=== PATIENT | male | born 1955 | race Caucasian/White ===

== ENCOUNTER 2020-05-25 23:35 | Emergency (ER) | payer MEDICARE, OTHER, SELFPAY ==
[2020-05-25 23:41] VITALS: BP 162/95; RESP 15; TEMP 36.4; O2SAT 97
--- NOTE | 2020-05-26 00:14 | ED.EYEPROB ---
HPI - Eye Problem General Chief complaint: Eye Problems Stated complaint: right eye pain Time Seen by Provider: 05/25/20 23:47 History of Present Illness HPI Narrative: Patient is a 65-year-old male who presents the ER with a right eye issue. Reports this evening around 6 PM he began to have haziness in the right eye. If you would look at a light he would see a rainbow appearing halo. This lasted for approximately 3 hours and went away on its own. Reports it then reoccurred around 11 PM and lasted for 45 minutes to an hour. No flashers or floaters. Has history of retinal detachment left eye. Denies any loss of vision/black vision. Reports visual acuity seems normal now that he is not having the haziness. Related Data Allergies Allergy/AdvReac Type Severity Reaction Status Date / Time No Known Allergies Allergy Verified 05/25/20 23:48 Review of Systems Review of Systems: All systems reviewed & are unremarkable except as noted in HPI and below Eyes: Eyes: Reports change in vision and Denies photophobia Neurologic: Denies dizziness, Denies headache(s), Denies numbness and Denies weakness PMFSH Past Medical History Medical History (Updated 05/26/20 @ 00:44 by Xavi Canchola MD) History of retinal detachment Hypercholesterolemia Surgical History Surgical History (Updated 05/26/20 @ 00:23 by Xavi Canchola MD) History of appendectomy Social History Social History (Updated 05/26/20 @ 00:23 by Xavi Canchola MD) Social History: 1 alcoholic beverage a week Gender identity (if verbalized by the patient): Male Exam Narrative: Exam Narrative: GENERAL: Well-appearing, well-nourished, and in no acute distress. HEAD: Normocephalic, atraumatic. EYES: PERRLA and EOMI. normal-appearing sclera and conjunctiva bilaterally. Right eye pressure 12 mmHg. Visual acuity is 20/40 in each eye while wearing glasses. CHEST: Clear to auscultation. No respiratory distress. HEART: Regular rate and rhythm. Normal peripheral pulses. EXTREMITIES: Normal range of motion. No edema. SKIN: Warm, dry, no rash. NEURO: Clear speech. No upper or lower extremity drift. Normal finger-nose testing and [id number] testing. Alert and oriented x3. Course Course Emergency Course: Discussed case with Dr. Ta at [facility] who is an psychologist research assistant. He recommends the patient follow-up tomorrow morning at 11 AM in their clinic for further evaluation. Does not recommend any eyedrops at this time but would recommend patient sleep with the head of the bed elevated. Is concerned about some corneal edema that could be related to glaucoma. Does not feel patient has acute vision threatening issue at this time. Patient educated on this and verbalized understanding of the treatment plan. Vital Signs Vital signs: Vital Signs Temperature 97.6 F 05/25/20 23:41 Respiratory Rate 15 05/25/20 23:41 Blood Pressure 162/95 H 05/25/20 23:41 Pulse Oximetry 97 05/25/20 23:41 Temperature 97.6 F 05/25/20 23:41 Respiratory Rate 15 05/25/20 23:41 Blood Pressure 162/95 H 05/25/20 23:41 Pulse Oximetry 97 05/25/20 23:41 Discharge Plan Discharge Clinical Impression: Visual disturbance Patient Disposition: Home, Self-Care Condition: Stable Instructions: Glaucoma (ED), Blurred Vision (ED) Additional Instructions: The symptoms you had this evening may represent elevated pressures in your eye. Your pressures here were normal but you are no longer experiencing symptoms. You need to follow-up at [facility] on 05/26/2020 with ophthalmology service. They would like you there at 11 AM. Is recommended you arrive early for parking and registration. Dr. Patel [address] [place] [address] Follow-up/Referrals: Bert,Toni Bragg MD [Primary Care Provider] -
[2020-05-26 00:56] VITALS: BP 137/86; PULSE 66; RESP 18; O2SAT 96
== END 2020-05-26 00:56 | disposition home or self-care (01) ==
PROVIDERS: Emergency Provider Emergency Medicine; PCP Internal Medicine
DX: H53.9 Unspecified visual disturbance (principal)
CPT/HCPCS: 99282

== ENCOUNTER 2021-06-15 00:35 | Day surgery (SDC) | payer MEDICARE, OTHER, SELFPAY ==
--- NOTE | 2021-06-14 11:01 | PM.HPGS ---
History of Present Illness History of Present Illness Consent: Risks, benefits, and alternatives have been discussed and questions answered. Patient agrees to proceed with procedure. Chief complaint: hx of colon polpys Narrative: Gibran Jones Jr. is a 66 year old male with a history of polyps referred for colon cancer screening. 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 Review of Systems Review of Systems: All systems reviewed & are unremarkable except as noted in HPI and below PMFSH Past Medical History Medical History History of retinal detachment Hypercholesterolemia Surgical History Surgical History History of appendectomy Social History Social History Social History: 1 alcoholic beverage a week Smoking status: Never smoker Alcohol intake: never Substance use: never Substance use type: does not use Living arrangements: with family Gender identity (if verbalized by the patient): Male Spiritual care concerns: No Meds Home Medications and Allergies Home Medications Medication Instructions Recorded Confirmed Type finasteride 5 mg PO DAILY 06/02/21 06/15/21 History tamsulosin [Flomax] 0.4 mg PO DAILY 06/02/21 06/15/21 History Allergies Allergy/AdvReac Type Severity Reaction Status Date / Time No Known Allergies Allergy Verified 06/15/21 07:07 Exam Resp: Auscultation: clear to auscultation bilaterally Cardio: Rate: regular rate Rhythm: regular rhythm GI: GI Palp: Yes Soft to palpation and No Tenderness to palpation present (GI) Assessment and Plan Assessment and plan (1) Colon cancer screening: Code(s): Z12.11 - Encounter for screening for malignant neoplasm of colon Status: Acute Assessment and Plan: Colonoscopy with possible biopsy or polypectomy or cautery or injection of substances.
[2021-06-15 06:55] VITALS: BP 135/87; PULSE 74; RESP 20; TEMP 36.1; O2SAT 98; BMI 27.6
[2021-06-15 07:26] VITALS: BP 111/72; PULSE 70; RESP 16; O2SAT 100
[2021-06-15] MEDS: LACTATED RINGERS 1,000 ML 150 ML IV CONT (07:27)
[2021-06-15 07:36] VITALS: BP 115/78; PULSE 74; RESP 18; O2SAT 100
[2021-06-15 07:46] VITALS: BP 129/98; PULSE 69; RESP 18; O2SAT 100
--- NOTE | 2021-06-15 08:05 | WPDANESEPPF ---
Anes - Initial Pre Proc Eval Procedure: Operation Date: 06/15/21 08:15 Proposed Procedures p Screening Colonoscopy - Jonathan Sawyer MD Date/Time: 06/15/21 08:05 Surgeon: Jonathan Sawyer MD Pre Op Diagnosis: hx of colon polpys Patient Data Age: 66 Gender: M Height: 1.8 m Weight: 89.9 kg Last Vital Signs Temp 97.0 F L 06/15/21 06:55 Pulse 74 06/15/21 06:55 Resp 20 06/15/21 06:55 BP 135/87 06/15/21 06:55 Pulse Ox 98 06/15/21 06:55 Allergies Allergy/AdvReac Type Severity Reaction Status Date / Time No Known Allergies Allergy Verified 06/15/21 07:07 Home Medications Medication Instructions Recorded Confirmed Type finasteride 5 mg PO DAILY 06/02/21 06/15/21 History tamsulosin [Flomax] 0.4 mg PO DAILY 06/02/21 06/15/21 History Patient hx anesthesia problems: none Family hx anesthesia problems: none Results Review: All pre-operative results and documents have been reviewed as part of the pre-operative evaluation. [facility] Past Medical History Medical History History of retinal detachment Hypercholesterolemia Surgical History Surgical History History of appendectomy Social History Social History Social History: 1 alcoholic beverage a week Smoking status: Never smoker Alcohol intake: never Substance use: never Substance use type: does not use Living arrangements: with family Gender identity (if verbalized by the patient): Male Spiritual care concerns: No Anes - Eval Final PreProcedure Day of Procedure 06/15/21 08:05 Patient weight: overweight Heart: regular rate and rhythm Lungs: clear to auscultation Airway: Mallampati scale class II Neurological: alert and oriented Last oral intake: >/= 8 hours ASA classification: II Emergent: no Anesthetic plan: proceed Anesthesia type and monitoring: general GIVS and standard monitoring Results Review: All pre-operative results and documents have been reviewed as part of the pre-operative evaluation. Informed Consent: The patient's anesthetic plan and its attendant risks and benefits were discussed with the patient/family/POA. Questions were solicited and answers provided to the satisfaction of the patient/family/POA.
[2021-06-15] MEDS: SIMETHICONE ORAL SUSPENSION 20 MG/0.3 ML 30 ML BOTTLE 0.6 ML IRRIGATION (08:13)
== END 2021-06-15 08:58 | disposition home or self-care (01) ==
PROVIDERS: PCP Internal Medicine; Visit Provider Internal Medicine Gastroenterology
PROC: 0DJD8ZZ Inspection of Lower Intestinal Tract, Via Natural or Artificial Opening Endoscopic (ICD-10-PCS; CPT 45378; principal; 2021-06-15 08:15)
DX: Z12.11 Encounter for screening for malignant neoplasm of colon (principal); K63.5 Polyp of colon; K57.30 Diverticulosis of large intestine without perforation or abscess without bleeding
CPT/HCPCS: 45380; 88305; J2704; J7120